=== PATIENT | male | born 1955 | race Caucasian/White ===

== ENCOUNTER 2016-07-25 14:22 | Emergency (ER) | payer OTHER ==
[~2016-07-25] VITALS: Ht 170.2 cm; Wt 77.5 kg
[2016-07-25 14:24] VITALS: Ht 170.2 cm; Wt 77.5 kg
[2016-07-25] MEDS ORDERED: FLUORESCEIN STRIP LEFT EYE ONE (16:30)
[2016-07-25] MEDS: TETRACAINE 0.5% 4 ML OPH LEFT EYE SCH ×2 (16:37→16:38)
--- NOTE | 2016-07-25 17:48 | RADRPT ---
PROCEDURE: CT orbits without contrast CLINICAL INDICATION: Left eye injury, piece of branch went into eye while gardening TECHNIQUE: CT of the orbits without contrast was performed on a multidetector CT scanner, with mult iplanar reformats. One or more of the following dose reduction techniques were used: Automated expo sure control, adjustment in mA and / or kV according to patient size, use of iterative reconstructiv e technique. CTDIvol = 29 mGy and DLP = 343 mGy-cm. COMPARISON: None available. FINDINGS: No fracture is identified. The bilateral globes, optic nerve sheath complexes, extraocular muscles and lacrimal glands are unremarkable. There is no retrobulbar hemorrhage. No fracture is identifie d. Tiny focal hypodensity is seen overlying the anterolateral aspect of the left globe which could be air underneath the eyelid although a radiolucent foreign body is difficult to exclude. No radiopa que foreign body is identified. Bony orbits are intact. Otherwise periorbital soft tissues are unr emarkable. There is partial bilateral ethmoid air cell opacification, moderate right and mild left frontal sinus mucosal thickening, mild to moderate left maxillary sinus mucosal thickening with smal l to moderate mucous retention cysts and small right maxillary sinus mucous retention cyst. IMPRESSION: 1. No orbital fracture/injury or radiopaque foreign body identified. 2. Tiny hypodensity overlying the anterolateral left globe which could be air underneath the eyelid , although radiolucent foreign body is difficult to exclude; correlate with direct visualization. 3. Paranasal sinus disease as described above. RPTAT: VV .Merrill Nicholson MD, Date Time Electronically viewed and signed by .Merrill Nicholson MD, MD on 07/25/2016 17:48 .O/
[2016-07-25] MEDS ORDERED: HYDR-906 PO (18:26)
[2016-07-25] MEDS ORDERED: SLF10OP15 LEFT EYE (18:26)
[2016-07-25] MEDS ORDERED: HYDROCODONE/APAP (5/325) TAB PO ONE (18:30)
--- NOTE | 2016-07-25 18:35 | ERD ---
ER Documentation Chief Complaint Date/Time DATE: 07/25/16 TIME: 18:28 Chief Complaint BIB FAMILY C/O A PIECE OF BRANCH GOING INTO EYE WHILE GARDENING HPI 51-year-old male patient with a past medical history of hypercholesterolemia, hypertension presents the ED complaining of the left eye injury while he was gardening at work. Reports that he actually tripped and fell and a branch poked his left eye. Reports that he has severe left eye pain. Rates it a 10 out of 10. States that he did not take any pain medications. Reports that his left eye is very watery. Reports that his left eye is slightly pearly but denies any vision loss. Denies wearing any glasses or contacts. Reports this happened 4 hours ago. Denies any fever, chills, headache, nausea, vomiting, neck stiffness, diplopia, photophobia. ROS All systems reviewed and are negative except as per history of present illness. Medications Home Meds Active Scripts Sulfacetamide Sodium* (Sulfacetamide Sodium*) 10%-15 Ml Opht Drops, 1 DROP LEFT EYE Q2H for 7 Days, EA Prov:VERNON BHAGAT PA-C 07/25/16 Hydrocodone/Acetaminophen ([place] 5-325 Tablet) 1 Each Tablet, 1 TAB PO Q6H Y for PAIN, #14 TAB Prov:VERNON BHAGAT PA-C 07/25/16 Allergies Allergies: Coded Allergies: No Known Allergy (Unverified , 07/25/16) PMhx/Soc History of Surgery: No Anesthesia Reaction: No Hx Neurological Disorder: No Hx Respiratory Disorders: No Hx Cardiac Disorders: Yes (HTN) Hx Psychiatric Problems: No Hx Miscellaneous Medical Probl: Yes (Highcholerterol) Hx Alcohol Use: No Hx Substance Use: No Hx Tobacco Use: No Smoking Status: Never smoker Physical Exam Vitals Vital Signs Date Time Temp Pulse Resp B/P Pulse Ox O2 Delivery O2 Flow Rate FiO2 07/25/16 14:24 98.7 94 20 169/99 98 Physical Exam Const: [id number], well-nourished. In no acute distress. Head: Atraumatic, normocephalic Eyes: Right normal conjunctiva without injection. Close left eye with lacrimation noted. No purulent discharge. Eye exam deferred until tetracaine is applied. After tetracaine was applied, patient was able to open his left eye. Pterygium of both eyes visualized. ENT: Normal external ear. Ear canal without erythema. Tympanic membrane pearly baxter without effusion or bulging. Nasal canal clear with normal turbinates. Moist oropharynx without tonsillar exudates. Non-erythematous pharynx. Uvula midline. No drooling. No trismus. Neck: No cervical midline tenderness. Full range of motion. No meningismus. No cervical lymphadenopathy. No JVD. Resp: Clear to auscultation bilaterally. No wheezing, rhonchi, rales, or crackles. No accessory muscle use. No retractions. Cardio: Regular rate and rhythm. No murmurs, rubs or gallops. Skin: Normal skin turgor. No petechiae or rashes Ext: No cyanosis, or edema. Distal pulses intact bilaterally. Neur: Awake and alert. Normal gait. Normal coordination. Cranial Nerves II- VII intact. Normal finger to nose. Muscle strength 5/5. Sensation intact. Psych: Normal Mood and Affect Results 24 hrs Current Medications Medications (Trade) Dose Ordered Sig/Moraima Route PRN Reason Start Time Stop Time Status Last Admin Dose Admin Tetracaine HCl (Tetracaine 0.5% Steri-Unit Dori) 1 drop ONCE LEFT EYE 07/25/16 16:30 07/25/16 18:46 DC 07/25/16 16:37 Fluorescein Sodium (Dkqbn-Y-Srpmc) 1 strip ONCE ONCE LEFT EYE 07/25/16 16:30 07/25/16 16:31 DC 07/25/16 16:37 Acetaminophen/ Hydrocodone Bitart ([place] (5/325)) 1 tab ONCE ONCE PO 07/25/16 18:30 07/25/16 18:31 DC 07/25/16 18:27 Procedures/MDM This is a 69-year-old male patient with a past medical history of hypertension, hypercholesterolemia presents to the ED complaining of a left eye injury while he was gardening at work. A patient is afebrile and nontoxic-appearing. Patient has normal vital signs. Eye Exam w/ Wood's lamp: Visual Acuity: [20/40 Left 20/70 Right] Visual Lewis: Intact in all four quadrants bilaterally Lac ducts/glands: No swelling Lids w/ evertion: Normal, no foreign body PROCEDURE: CT orbits without contrast CLINICAL INDICATION: Left eye injury, piece of branch went into eye while gardening TECHNIQUE: CT of the orbits without contrast was performed on a multidetector CT scanner, with multiplanar reformats. One or more of the following dose reduction techniques were used: Automated exposure control, adjustment in mA and / or kV according to patient size, use of iterative reconstructive technique. CTDIvol = 29 mGy and DLP = 343 mGy-cm. COMPARISON: None available. FINDINGS: No fracture is identified. The bilateral globes, optic nerve sheath complexes, extraocular muscles and lacrimal glands are unremarkable. There is no retrobulbar hemorrhage. No fracture is identified. Tiny focal hypodensity is seen overlying the anterolateral aspect of the left globe which could be air underneath the eyelid although a radiolucent foreign body is difficult to exclude. No radiopaque foreign body is identified. Bony orbits are intact. Otherwise periorbital soft tissues are unremarkable. There is partial bilateral ethmoid air cell opacification, moderate right and mild left frontal sinus mucosal thickening, mild to moderate left maxillary sinus mucosal thickening with small to moderate mucous retention cysts and small right maxillary sinus mucous retention cyst. IMPRESSION: 1. No orbital fracture/injury or radiopaque foreign body identified. 2. Tiny hypodensity overlying the anterolateral left globe which could be air underneath the eyelid, although radiolucent foreign body is difficult to exclude ; correlate with direct visualization. 3. Paranasal sinus disease as described above. Patient will be discharged with a prescription for [place] and Sulfacetamide eye drops to cover for possible corneal abrasion/ulcer. Patient's ocular symptoms have stabilized while they have been evaluated in the department and are appropriate for outpatient work up. Low suspicion for ruptured globe, retinal detachment, periorbital cellulitis, acute angle closure glaucoma, deep space infection, iritis, traumatic hyphema, conjunctivitis, subconjunctival hemorrhage , corneal abrasion, corneal ulcer, pterygium, hypopyon, blepharitis, hordeolum, chalazion, or other emergent conditions. This case was discussed with my supervising physician, Dr. Lee who agreed with the management and discharge plan. At this time Moody lamp is being fixed at [facility]. We were unable to perform a Moody lamp exam however a CT was ordered to further evaluate patient. This case was discussed with my supervising physician, Dr. Lee who agreed with the management. Discharge medications: Sulfacetamide sodium eye drops, [place] Strictly instructed patient to follow up with an interior paneler within 24 hours. Instructed patient to return to the ED for any worsening symptoms. Patient is hemodynamically stable. Patient's questions were answered. Patient understood and agreed with discharge plan. Departure Diagnosis: Primary Impression: Eye injury Encounter type: initial encounter Laterality: left Qualified Code: S05.92XA - Left eye injury, initial encounter Condition: Stable Patient Instructions: Corneal Injury, Eye Protection at Work: First Aid Referrals: [facility] YOU HAVE RECEIVED A MEDICAL SCREENING EXAM AND THE RESULTS INDICATE THAT YOU DO NOT HAVE A CONDITION THAT REQUIRES URGENT TREATMENT IN THE EMERGENCY DEPARTMENT. FURTHER EVALUATION AND TREATMENT OF YOUR CONDITION CAN WAIT UNTIL YOU ARE SEEN IN YOUR DOCTORS OFFICE WITHIN THE NEXT 1-2 DAYS. IT IS YOUR RESPONSIBILITY TO MAKE AN APPOINTMENT FOR FOLOW-UP CARE. IF YOU HAVE A PRIMARY DOCTOR --you should call your primary doctor and schedule an appointment IF YOU DO NOT HAVE A PRIMARY DOCTOR YOU CAN CALL OUR PHYSICIAN REFERRAL HOTLINE AT IF YOU CAN NOT AFFORD TO SEE A PHYSICIAN YOU CAN CHOSE FROM THE FOLLOWING [facility] [address] [facility]. [facility] [address] [facility]. [facility] [place] [address] [facility] [facility] [address] [facility] [facility] [address] [facility]. [facility]. [address] [facility]. [facility] YOU HAVE RECEIVED A MEDICAL SCREENING EXAM AND THE RESULTS INDICATE THAT YOU DO NOT HAVE A CONDITION THAT REQUIRES URGENT TREATMENT IN THE EMERGENCY DEPARTMENT. FURTHER EVALUATION AND TREATMENT OF YOUR CONDITION CAN WAIT UNTIL YOU ARE SEEN IN YOUR DOCTORS OFFICE WITHIN THE NEXT 1-2 DAYS. IT IS YOUR RESPONSIBILITY TO MAKE AN APPOINTMENT FOR FOLOW-UP CARE. IF YOU HAVE A PRIMARY DOCTOR --you should call your primary doctor and schedule and appointment IF YOU DO NOT HAVE A PRIMARY DOCTOR YOU CAN CALL OUR PHYSICIAN REFERRAL HOTLINE AT . IF YOU CAN NOT AFFORD TO SEE A PHYSICIAN YOU CAN CHOSE FROM THE FOLLOWING [facility] INSTITUTIONS: [facility] [id number] [place] [address] [facility] [address] [place] [address] [facility] [address] [place] [address] [facility] URGENT CARE/SPECIALTIES [facility] Hours: Mon - Fri 9:00 AM - 5:00 PM Additional Instructions: Es muy importante para usted seguir con oftalmlogo dentro de las 24 horas para evaluacin adicional y tratamiento. Volver al ED antes de cualquier prdida de la visin, empeoramiento de la cefalea, fiebre. VERNON BHAGAT PA-C Jul 25, 2016 18:35
== END 2016-07-25 18:46 | disposition home or self-care (01) ==
LOC: FTE 14:22
DX: S05.92XA Unspecified injury of left eye and orbit, initial encounter (principal); I10 Essential (primary) hypertension; W01.0XXA Fall on same level from slipping, tripping and stumbling without subsequent striking against object, initial encounter; Y92.89 Other specified places as the place of occurrence of the external cause
CPT/HCPCS: 70480; Z7502; Z7610